=== PATIENT | male | born 1955 | race Caucasian/White ===

== ENCOUNTER 2016-08-01 13:30 | Emergency (ER) | payer OTHER ==
[2016-08-01] MEDS ORDERED: Sodium Chloride 0.9% 10 ML Syringe FLUSH PRN (13:54)
[2016-08-01] MEDS ORDERED: Lactulose Soln 10 GM/15 ML 30 ML UD Cup PO ONE (13:54)
[2016-08-01] MEDS ORDERED: Thiamine 100 MG Tab PO ONE (13:56)
[2016-08-01] MEDS ORDERED: Diphtheria,Pertussis(Acell),Tetanus Vaccine 0.5 ML SDV IM ONE (13:57)
--- NOTE | 2016-08-01 14:04 | EDM.PDOC ---
ED HPI GENERAL MEDICAL PROBLEM - General Chief Complaint: Neurological Problem Stated Complaint: WEAK SOB Time Seen by Provider: 08/01/16 13:45 Source of Information: Reports: Patient, Family History Limitations: Reports: Other (Patient not able to offer any useful history due to mental status) - History of Present Illness INITIAL COMMENTS - FREE TEXT/NARRATIVE: 60 yo male here with mental clouding, some urinary incontinence, increasing abdominal girth, and slight yellowing of his scleras. and sons say he drinks at least a 6 pack daily of mostly beer. Saw Dr. Noyola several mos ago and was advised to reduce his alcohol consumption. Smokes a ppd. Is on minimal meds and rarely sees doctors. Family not aware if he's had black or bloody stools lately. Unknown last tetanus. Onset: gradual, unknown/unsure Duration: Day(s):, Getting worse Location: Reports: other (head(confusion), skin(jaundice), abdomen(ascites), vascular(easy bruisability), genitourinary-urinary incontinence) Quality: Reports: Other (No apparent pain) Severity: moderate Improves with: Reports: None Worsens with: Reports: Other (? time) Context: Reports: Other (heavy alcohol use for years) Associated Symptoms: Reports: confusion, malaise, shortness of breath, weakness Treatments [employer]: Reports: Other (see below) (none) - Related Data Allergies Allergy/AdvReac Type Severity Reaction Status Date / Time No Known Allergies Allergy Verified 08/01/16 13:40 ED ROS GENERAL - Review of Systems Review Of Systems: See Below Constitutional: Reports: malaise, weakness HEENT: Reports: Other (jaundice) Respiratory: Reports: Shortness of Breath (neel. with exertion), Cough ( occasionally) Cardiovascular: Reports: Dyspnea on exertion Endocrine: Reports: no symptoms GI/Abdominal: Reports: Anorexia, Distension. Denies: Black stool, Bloody stool , Constipation, Diarrhea, Decreased appetite, Hematochezia, Melena, Nausea, Stool incontinence, Vomiting : Reports: incontinence. Denies: dysuria, flank pain, frequency, hematuria, pain, urgency, urinary retention Musculoskeletal: Reports: no symptoms Skin: Reports: jaundice. Denies: erythema, wound Neurological: Reports: Confusion, Gait Disturbance (unsteady). Denies: Seizure Psychiatric: Reports: Confusion ED EXAM, GENERAL - Physical Exam Exam: See Below Exam Limited By: No limitations General Appearance: alert, WD/WN, no apparent distress, lethargic Eye Exam: bilateral eye: EOMI, other (scleral icterus) Ears: normal external exam, normal canal, hearing grossly normal Ear Exam: bilateral ear: auricle normal, canal normal Nose: normal inspection, normal mucosa, no blood Throat/Mouth: Normal inspection, Normal lips, Normal oropharynx, Normal voice, No airway compromise Head: atraumatic, normocephalic Neck: normal inspection, supple Respiratory/Chest: no respiratory distress, lungs clear, normal breath sounds, no accessory muscle use Cardiovascular: regular rate, rhythm, no edema GI/Abdominal: soft, non tender, distended (Male) Exam: Other (pants wet from urinary incontinence) Back Exam: normal inspection. No: CVA tenderness (R), CVA tenderness (L) Extremities: non-tender, pedal edema (bilaterally). No: Carrie's Sign, increased warmth, redness Neurological: alert, CN II-XII intact, no motor/sensory deficits, slow to respond Psychiatric: normal affect, flat affect Skin Exam: Warm, Dry, Intact, Normal color, Other (ecchymosis present without associated known injuries.) Lymphatic: no adenopathy EKG INTERPRETATION EKG Date: 08/01/16 Time: 14:30 Rhythm: a-fib Rate (beats/min): 125 [place]: normal P-wave: absent QRS: normal ST-T: normal QT: prolonged Comparison: NA - no prior EKG Course - Vital Signs Text/Narrative:: Saline lock, Thiamine 100 mg IV, D50W 1 amp IV, lactulose syrup 20 gm po, metoprolol tartrate 25 mg po x 2, KCL 40 meq po, D5NS + 20 meq KCL/l IV @ 150 ml /h, Magnesium oxide 400 mg po monitoring specialist Bladder scan 167 ml @ 1540h Accucheck @ 1540h=90 Last Recorded V/S: Last Vital Signs Temp 34.7 C L 08/01/16 15:35 Pulse 133 H 08/01/16 15:35 Resp 20 08/01/16 15:35 BP 138/93 H 08/01/16 15:35 Pulse Ox 100 08/01/16 15:35 - Orders/Labs/Meds Orders: Active Orders 24 hr Category Date Time Status Accu Check [Blood Glucose Check, Bedside] [RC] ONETIME Care 08/01/16 13:58 Active Accu Check [Blood Glucose Check, Bedside] [RC] ONETIME Care 08/01/16 15:29 Active Accu Check [Blood Glucose Check, Bedside] [RC] ONETIME Care 08/01/16 15:33 Active Cardiac Monitoring [RC] .As Directed Care 08/01/16 13:55 Active Vaccines to be Administered [RC] PER UNIT ROUTINE Care 08/01/16 13:57 Active AMMONIA [REF] Stat Lab 08/01/16 14:10 Received Blood Alcohol [ETHANOL BLOOD MEDICAL] [CHEM] Stat Lab 08/01/16 15:39 Ordered Hemoccult [OCCULT BLOOD DIAGNOSTIC] [OP] Stat Lab 08/01/16 13:53 Uncollected UA W/MICROSCOPIC [URIN] Stat Lab 08/01/16 13:53 Uncollected Dextrose 5%-0.9% NaCl with KCl [D5 NS with 20 mEq KCl] Med 08/01/16 15:00 Active 1,000 ml IV ASDIRECTED Sodium Chloride 0.9% [Saline Flush] Med 08/01/16 13:54 Active 10 ml FLUSH ASDIRECTED PRN Saline Lock Insert [OM.PC] Routine Oth 08/01/16 13:54 Ordered EKG 12 Lead [EK] Routine Ther 08/01/16 13:56 Ordered Medication Orders Potassium Chloride/Dextrose/Sod Cl (D5 Ns With 20 Meq Kcl) 1,000 mls @ 150 mls/ hr IV ASDIRECTED GREG Last Admin: 08/01/16 15:14 Dose: 150 mls/hr Sodium Chloride (Saline Flush) 10 ml FLUSH ASDIRECTED PRN PRN Reason: Keep Vein Open Labs: Laboratory Tests 08/01/16 08/01/16 08/01/16 Range/Units 14:04 14:10 14:10 WBC 14.2 H (4.5-12.0) X10-3/uL RBC 4.49 (4.30-5.75) x10(6)uL Hgb 15.7 H (11.5-15.5) g/dL Hct 47.1 (30.0-51.3) % MCV 105.0 H (80-96) fL MCH 34.9 H (27.7-33.6) pg MCHC 33.2 (32.2-35.4) g/dL RDW 16.1 H (11.5-15.5) % Plt Count 13 L* (125-369) X10(3)uL Sodium 132 L (135-145) mmol/L Potassium 2.9 L (3.5-5.3) mmol/L Chloride 94 L (100-110) mmol/L Carbon Dioxide 15 L (23-29) mmol/L BUN 30 H (8-23) mg/dL Creatinine 1.3 (0.6-1.3) mg/dL Est Cr Clr Drug Dosing TNP Estimated GFR (MDRD) 56 L (>60) BUN/Creatinine Ratio 23.1 H (9-20) Glucose 43 L (80-116) mg/dL POC Glucose 30 L* (80-116) mg/dL Calcium 8.3 L (8.6-10.2) mg/dL Phosphorus (3.0-4.6) mg/dL Magnesium (1.8-2.5) mg/dL Total Bilirubin 6.7 H (0.1-1.3) mg/dL AST 139 H (5-27) IU/L ALT 51 H (14-26) IU/L Alkaline Phosphatase 215 H (56-112) IU/L Troponin I (0.02-0.06) NG/ML Total Protein 7.0 (6.0-8.0) g/dL Albumin 1.9 L (3.2-4.6) g/dL Globulin 5.1 g/dL Albumin/Globulin Ratio 0.4 08/01/16 08/01/16 08/01/16 Range/Units 14:10 14:10 14:10 WBC (4.5-12.0) X10-3/uL RBC (4.30-5.75) x10(6)uL Hgb (11.5-15.5) g/dL Hct (30.0-51.3) % MCV (80-96) fL MCH (27.7-33.6) pg MCHC (32.2-35.4) g/dL RDW (11.5-15.5) % Plt Count (125-369) X10(3)uL Sodium (135-145) mmol/L Potassium (3.5-5.3) mmol/L Chloride (100-110) mmol/L Carbon Dioxide (23-29) mmol/L BUN (8-23) mg/dL Creatinine (0.6-1.3) mg/dL Est Cr Clr Drug Dosing Estimated GFR (MDRD) (>60) BUN/Creatinine Ratio (9-20) Glucose (80-116) mg/dL POC Glucose (80-116) mg/dL Calcium (8.6-10.2) mg/dL Phosphorus 5.9 H (3.0-4.6) mg/dL Magnesium 1.7 L (1.8-2.5) mg/dL Total Bilirubin (0.1-1.3) mg/dL AST (5-27) IU/L ALT (14-26) IU/L Alkaline Phosphatase (56-112) IU/L Troponin I 0.34 H* (0.02-0.06) NG/ML Total Protein (6.0-8.0) g/dL Albumin (3.2-4.6) g/dL Globulin g/dL Albumin/Globulin Ratio 08/01/ Range/Units 15:38 WBC (4.5-12.0) X10-3/uL RBC (4.30-5.75) x10(6)uL Hgb (11.5-15.5) g/dL Hct (30.0-51.3) % MCV (80-96) fL MCH (27.7-33.6) pg MCHC (32.2-35.4) g/dL RDW (11.5-15.5) % Plt Count (125-369) X10(3)uL Sodium (135-145) mmol/L Potassium (3.5-5.3) mmol/L Chloride (100-110) mmol/L Carbon Dioxide (23-29) mmol/L BUN (8-23) mg/dL Creatinine (0.6-1.3) mg/dL Est Cr Clr Drug Dosing Estimated GFR (MDRD) (>60) BUN/Creatinine Ratio (9-20) Glucose (80-116) mg/dL POC Glucose 91 (80-116) mg/dL Calcium (8.6-10.2) mg/dL Phosphorus (3.0-4.6) mg/dL Magnesium (1.8-2.5) mg/dL Total Bilirubin (0.1-1.3) mg/dL AST (5-27) IU/L ALT (14-26) IU/L Alkaline Phosphatase (56-112) IU/L Troponin I (0.02-0.06) NG/ML Total Protein (6.0-8.0) g/dL Albumin (3.2-4.6) g/dL Globulin g/dL Albumin/Globulin Ratio Meds: Medications Generic Name Dose Route Start Last Admin Trade Name Freq PRN Reason Stop Dose Admin Potassium Chloride/Dextrose/Sod Cl 1,000 mls @ 150 mls/hr 08/01/16 15:00 15:14 D5 Ns With 20 Meq Kcl IV 150 mls/hr ASDIRECTED GREG Administration Sodium Chloride 10 ml 08/01/16 13:54 Saline Flush FLUSH ASDIRECTED PRN Keep Vein Open Discontinued Medications Generic Name Dose Route Start Last Admin Trade Name Freq PRN Reason Stop Dose Admin Dextrose/Water 50 ml 08/01/16 14:10 08/01/16 14:22 Dextrose 50% In Water IVPUSH 08/01/16 14:11 50 ml ONETIME ONE Administration Dextrose/Water Confirm 08/01/16 14:11 08/01/16 14:52 Dextrose 50% In Water Administered 08/01/16 14:12 Not Given Dose 50 ml .ROUTE .STK-MED ONE Diphtheria/Tetanus/Acell Pertussis 0.5 ml 08/01/16 13:57 08/01/16 15:38 Adacel IM 08/01/16 13:58 0.5 ml .ONCE ONE Administration Thiamine HCl 100 mg/ Sodium 101 mls @ 1,000 mls/hr 08/01/16 14:08 08/01/16 14 :19 Chloride IV 08/01/16 14:14 1,000 mls/hr ONETIME ONE Administration Potassium Chloride/Sodium Chloride 1,000 mls @ 150 mls/hr 08/01/16 15:00 Normal Saline With 20 Meq Kcl IV ASDIRECTED GREG Lactulose 20 gm 08/01/16 13:54 08/01/16 15:05 Cephulac PO 08/01/16 13:55 20 gm ONETIME ONE Administration Magnesium Oxide 400 mg 08/01/16 14:54 08/01/16 15:12 Magnesium Oxide PO 08/01/16 14:55 400 mg ONETIME ONE Administration Metoprolol Tartrate 25 mg 08/01/16 14:32 08/01/16 15:05 Lopressor PO 08/01/16 14:33 25 mg ONETIME ONE Administration Metoprolol Tartrate 25 mg 08/01/16 15:42 Lopressor PO 08/01/16 15:43 ONETIME ONE Potassium Chloride 40 meq 08/01/16 14:47 08/01/16 15:04 Klor-Con 10 PO 08/01/16 14:48 40 meq ONETIME ONE Administration Thiamine HCl 100 mg 08/01/16 13:56 08/01/16 14:52 Vitamin B-1 PO 08/01/16 13:57 Not Given ONETIME ONE Departure - Departure Time of Disposition: 15:55 Disposition: DC/Tfer to [facility] Condition: fair Clinical Impression: Alcoholic hepatitis with ascites, Hyponatremia, Hypokalemia, Jaundice, Alcohol abuse, Hypomagnesemia, Atrial fibrillation with RVR, Hypoglycemia, Elevated troponin Referrals: Rubén Noyola MD [Primary Care Provider] - - My Orders Last 24 Hours: My Active Orders 08/01/16 13:53 Hemoccult [OCCULT BLOOD DIAGNOSTIC] [OP] Stat UA W/MICROSCOPIC [URIN] Stat 08/01/16 13:54 Sodium Chloride 0.9% [Saline Flush] 10 ml FLUSH ASDIRECTED PRN Saline Lock Insert [OM.PC] Routine 08/01/16 13:55 Cardiac Monitoring [RC] .As Directed 08/01/16 13:56 EKG 12 Lead [EK] Routine 08/01/16 13:57 Vaccines to be Administered [RC] PER UNIT ROUTINE 08/01/16 13:58 Accu Check [Blood Glucose Check, Bedside] [RC] ONETIME 08/01/16 14:10 AMMONIA [REF] Stat 08/01/16 15:00 Dextrose 5%-0.9% NaCl with KCl [D5 NS with 20 mEq KCl] 1,000 ml IV ASDIRECTED 08/01/16 15:29 Accu Check [Blood Glucose Check, Bedside] [RC] ONETIME 08/01/16 15:33 Accu Check [Blood Glucose Check, Bedside] [RC] ONETIME 08/01/16 15:39 Blood Alcohol [ETHANOL BLOOD MEDICAL] [CHEM] Stat - Assessment/Plan Last 24 Hours: My Active Orders 08/01/16 13:53 Hemoccult [OCCULT BLOOD DIAGNOSTIC] [OP] Stat UA W/MICROSCOPIC [URIN] Stat 08/01/16 13:54 Sodium Chloride 0.9% [Saline Flush] 10 ml FLUSH ASDIRECTED PRN Saline Lock Insert [OM.PC] Routine 08/01/16 13:55 Cardiac Monitoring [RC] .As Directed 08/01/16 13:56 EKG 12 Lead [EK] Routine 08/01/16 13:57 Vaccines to be Administered [RC] PER UNIT ROUTINE 08/01/16 13:58 Accu Check [Blood Glucose Check, Bedside] [RC] ONETIME 08/01/16 14:10 AMMONIA [REF] Stat 08/01/16 15:00 Dextrose 5%-0.9% NaCl with KCl [D5 NS with 20 mEq KCl] 1,000 ml IV ASDIRECTED 08/01/16 15:29 Accu Check [Blood Glucose Check, Bedside] [RC] ONETIME 08/01/16 15:33 Accu Check [Blood Glucose Check, Bedside] [RC] ONETIME 08/01/16 15:39 Blood Alcohol [ETHANOL BLOOD MEDICAL] [CHEM] Stat
[2016-08-01] MEDS ORDERED: Thiamine 100 MG in Sodium Chloride 0.9% 100 ML IV ONE (14:08)
[2016-08-01] MEDS ORDERED: 50% Dextrose in Water 50 ML Syringe IVPUSH ONE (14:10)
[2016-08-01] MEDS ORDERED: 50% Dextrose in Water 50 ML Syringe ONE (14:11)
[2016-08-01] MEDS ORDERED: Metoprolol Tartrate 25 MG Tab PO ONE ×2 (14:32→15:42)
[2016-08-01] MEDS ORDERED: Potassium Chloride 10 MEQ Tab.ER PO ONE (14:47)
[2016-08-01] MEDS ORDERED: Magnesium Oxide 400 MG Tab PO ONE (14:54)
[2016-08-01] MEDS ORDERED: Dextrose 5%-0.9% NaCl with KCl 1,000 ML IV SCH (15:00)
[2016-08-01] MEDS ORDERED: NS + KCl 20mEq/L 1,000 ML IV SCH (15:00)
[2016-08-01 15:53] VITALS: BP 128/101
== END 2016-08-01 16:30 ==
LOC: FB.ED 13:30
DX: K70.11 Alcoholic hepatitis with ascites (principal); R17 Unspecified jaundice; E87.1 Hypo-osmolality and hyponatremia; E87.6 Hypokalemia; F10.10 Alcohol abuse, uncomplicated; E83.42 Hypomagnesemia; I48.91 Unspecified atrial fibrillation; E16.2 Hypoglycemia, unspecified
CPT/HCPCS: 36415; 80053; 82140; 82962; 83735; 84100; 84484; 85027; 90471; 90715; 93005; 96365; 96375; 99285; A9270; G0480; J3411; J3480; J7030